=== PATIENT | female | born 1990 | race Caucasian/White ===

== ENCOUNTER 2019-06-22 15:55 | Emergency (ER) | payer OTHER ==
[~2019-06-22] VITALS: Wt 89.1 kg
[~2019-06-22 15:55] MED LIST: ACET325T33 PO; CEPH-443 PO
[2019-06-22] MEDS ORDERED: SOD CHLORIDE 0.9% 500 ML IV STA (17:36)
[2019-06-22 19:24] VITALS: BP 125/85; PULSE 70; RESP 18
== END 2019-06-22 19:25 | disposition home or self-care (01) ==
LOC: FTE 15:55
DX: O23.41 Unspecified infection of urinary tract in pregnancy, first trimester (principal); R10.2 Pelvic and perineal pain; Z3A.09 9 weeks gestation of pregnancy
CPT/HCPCS: 36415; 76801; 80048; 81003; 81025; 83690; 84702; 85025; 96360; J7040; Z7502